=== PATIENT | female | born 1935 | race Caucasian/White ===

== ENCOUNTER 2016-10-21 06:38 | Day surgery (SDC) | payer MEDICARE ==
[~2016-10-21] VITALS: Ht 157.5 cm; Wt 46.3 kg
--- NOTE | ~2016-10-21 | OP ---
Record Of Operation [facility] [address] [place]. [address] NAME: LITO DEL ROSARIO : 39 STATUS : [facility]#: [id number] AGE: 80 ADM/REG DATE : 10/21/16 MR#: [id number] REPORT SERV DATE: 10/23/16 DICTATED BY: KENDRA CHAU DATE: 10/21/16 REPORT STATUS : Draft TRANSCRIBED BY: KEMAR DATE: 10/21/16 DATE OF PROCEDURE: 10/21/2016 PROCEDURE PERFORMED: Fiberoptic bronchoscopy, diagnostic bronchoscopy with bronchoalveolar lavage, electromagnetic navigation transbronchial lung biopsies from transbronchial brushes, and endobronchial ultrasound endoscopy with transbronchial needle aspirates of two lymph node stations. DESCRIPTION OF PROCEDURE: After risks and benefits were explained, informed consent was obtained. The patient received general anesthesia under the care of Anesthesiology. The patient had an oral endotracheal tube placed and tolerated the procedure well. The bronchoscope was inserted via the oral endotracheal tube and advanced to the mid trachea without difficulty. The entire bronchial tree was inspected. She had some subtle changes of chronic bronchitis throughout, but no endobronchial lesions. Following airway inspection, we switched to the endobronchial ultrasound scope, identified a small level 4 lymph node and performed four separate biopsies for cell block and cytology. Those showed lymphoid tissue, though no evidence of malignancy. We then rotated and identified a larger level 7 lymph node that was also biopsied four times. There were no malignant cells, so there was a very good lymphoid sampling. We switched back to the therapeutic bronchoscope and advanced the extended using channel with the LG probe, performed registration points and navigated to within 0.4 cm of the lesion on three separate times with good direct visualization of the diffuse lesion on fluoroscopy. We performed a series of transbronchial biopsies with forceps and transbronchial brushes with sampling of respiratory cells and some metaplastic tissue, though no diagnostic material. The biopsies were sent for pathology. IMPRESSION: Chronic bronchitis, hazy pulmonary nodule, and small adenopathy. GEOVANNY/KEMAR Kendra Chau M.D. / [id number] CC: Kendra Chau M.D. Keenan Stokes M.D.
[~2016-10-21 06:38] MED LIST: ASAB PO; BROVANA15 MCG INH; CARDCD180 PO; DUONEB INH; KLOR-CON 1010 MEQ PO; KLOR-CON M2020 MEQ PO; L20 PO; L40 PO; LAN125 PO; LEVAQUIN750 MG PO; LOP25 PO; MUCINEX600 MG PO; NICORELIEF PO; NICOTINE LOZENGE PO; P10 PO; REFRESH OPH; T PO; VENTOLIN HFA INH
[2016-10-21 06:54] LABS: HEMATOCRIT 34.1 % (36.0-48.0); HEMOGLOBIN 10.5 g/dL (12.0-16.0)
[2016-10-21 07:53] LABS: CALCIUM, SERUM 9.4 MG/DL (8.5-10.4); CHLORIDE, SERUM 101 MMOL/L (96-112); CREATININE 1.07 MG/DL (0.55-1.02); GFR AFRICAN AMERICAN 58 ML/MIN (>=60); GFR NON AFRICAN AMERICAN 50 ML/MIN (>=60); POTASSIUM, SERUM 4.8 MMOL/L (3.5-5.3); SODIUM, SERUM 139 MMOL/L (135-148)
[2016-10-21 07:54] LABS: BUN (BLOOD UREA NITROGEN) 34 MG/DL (6-23); CO2 (CARBON DIOXIDE) 35 MMOL/L (24-34); GLUCOSE, SERUM 91 MG/DL (60-99)
[2016-10-21 18:33] LABS: BD FL LYMPH (NOT ORD) 7 %; BF BASO (NOT OF) 0 %; BF LARGE MONONUCLEAR 21 %; BODY FLUID EOS (NOT ORD) 5 %; BODY FLUID SEG (NOT ORD) 67 %
[2016-10-21 18:34] LABS: BD FL SOURCE (NOT ORD) BAL; BF TOTAL CELL CT (NOT ORD 951 /MM3; BODY FLUID RBC (NOT ORD) 22000 /MM3
== END 2016-10-21 17:37 | disposition home or self-care (01) ==
LOC: DMU 06:38
PROVIDERS: Anesthesiology; Internal Medicine Pulmonary Disease
PROC: 07974ZX Drainage of Thorax Lymphatic, Percutaneous Endoscopic Approach, Diagnostic (ICD-10-PCS; principal; 2016-10-21 08:00)
PROC: BB4CZZZ Ultrasonography of Mediastinum (ICD-10-PCS; 2016-10-21 08:00)
PROC: 0B9C8ZX Drainage of Right Upper Lung Lobe, Via Natural or Artificial Opening Endoscopic, Diagnostic (ICD-10-PCS; 2016-10-21 08:00)
PROC: 8E0WXBF Computer Assisted Procedure of Trunk Region, With Fluoroscopy (ICD-10-PCS; 2016-10-21 08:00)
PROC: 0B948ZX Drainage of Right Upper Lobe Bronchus, Via Natural or Artificial Opening Endoscopic, Diagnostic (ICD-10-PCS; 2016-10-21 08:00)
PROC: 0B9C8ZX Drainage of Right Upper Lung Lobe, Via Natural or Artificial Opening Endoscopic, Diagnostic (ICD-10-PCS; 2016-10-21 08:00)
DX: C34.11 Malignant neoplasm of upper lobe, right bronchus or lung (principal); R59.0 Localized enlarged lymph nodes; I25.10 Atherosclerotic heart disease of native coronary artery without angina pectoris; I12.9 Hypertensive chronic kidney disease with stage 1 through stage 4 chronic kidney disease, or unspecified chronic kidney disease; J43.9 Emphysema, unspecified; N18.2 Chronic kidney disease, stage 2 (mild); F17.210 Nicotine dependence, cigarettes, uncomplicated; Z90.89 Acquired absence of other organs; Z80.1 Family history of malignant neoplasm of trachea, bronchus and lung; Z80.3 Family history of malignant neoplasm of breast; Z88.1 Allergy status to other antibiotic agents; Z88.8 Allergy status to other drugs, medicaments and biological substances; Z79.82 Long term (current) use of aspirin; Z79.899 Other long term (current) drug therapy
CPT/HCPCS: 71010; 80048; 85014; 85018; 87015; 87070; 87102; 87116; 87205; 88112; 88172; 88173; 88305; 88333; 88344; 89051; 93005; 94640; A9270-GY; C1725; C1769; J2370; J2405; J2710